=== PATIENT | female | born 1985 | race Caucasian/White ===

== ENCOUNTER 2017-03-24 22:26 | Emergency (ER) | payer MEDICAID ==
--- NOTE | ~2017-03-24 | ER ---
PATIENT'S NAME: BETHEL COWART [facility] AGE: 31 Y [address] ROOM: [place] [address] LOCATION: [facility] ADMIT DATE: 03/24/2017 ER/Outpatient Report DISCHARGE DATE: 03/24/2017 FAMILY PHYSICIAN: PHYSICIAN, NO ATTENDING PHYSICIAN: Jeanne Barbosa HISTORY OF PRESENT ILLNESS: This is a 31-year-old female, who presents today with chief complaint of 1- week of cough, congestion and runny nose. The patient says she feels short of breath. Short of breath is worse with coughing. She says she has had some productive sputum as well and also reports fever. She has not taken her temperature. She saw a doctor in [place] about a week ago for this and was given Z-Desmond, pseudoephedrine, Medrol Dosepak and inhaler. She has been using it and she says it is not helping and also with a lot of sick contacts. Her entire family has cold, congestion, cough and runny nose syndromes. No other complaints at this time. No chest pain. No nausea or vomiting. No abdominal pain. No tingling. No muscle aches. No other complaints. PAST MEDICAL HISTORY: Anxiety, PTSD. SURGICAL HISTORY: Right cystectomy, tubal ligation and appendectomy. SOCIAL HISTORY: She smokes half-a-pack to 1-pack per day and has done so for 15 years. Continues to smoke even with these cough and congestion. Denies any drugs or alcohol use. MEDICATIONS: Please see med list. ALLERGIES: LATEX. REVIEW OF SYSTEMS: Reviewed by me and negative with the exception of those discussed in the HPI. PHYSICAL EXAMINATION: VITAL SIGNS: She is 5 feet 1 inch. She weighs 72.1 kilos, blood pressure 127/74, heart rate 83, respiratory rate 16, temperature is 99.3 tympanic, and saturating 97% on room air. GENERAL: The patient smells like cigarette. She is not ill or toxic appearing. She is speaking to me in full sentences. Not actively coughing at this time. She does not appear toxic. She is alert and oriented x3. PATIENT'S NAME: BETHEL COWART [facility] AGE: 31 Y [address] ROOM: [place] [address] LOCATION: [facility] ADMIT DATE: 03/24/2017 ER/Outpatient Report DISCHARGE DATE: 03/24/2017 FAMILY PHYSICIAN: PHYSICIAN, NO ATTENDING PHYSICIAN: Jeanne Barbosa HEENT: Bilateral TMs are clear. She has no sinus tenderness. On palpation of her nose, she has no nasal drainage. Her throat is clear. She has no pharyngeal erythema or exudates. No trouble handling secretions. HEART: Rate is regular. She is not tachy. She has normal breath sounds. No wheezing, rales or rhonchi. No retractions. No accessory muscle use. ABDOMEN: Soft, nontender, nondistended. No guarding or rebound. EXTREMITIES: No pedal edema. Moves all extremities. Nontender. No rash. SKIN: Warm and dry. IMPRESSION: Upper respiratory tract infection. PLAN: The patient already has been treated with antibiotics. She is on Medrol Dosepak as well. I will give her some Tessalon Perles for her cough, but she is afebrile here and well appearing. It is likely viral. Can continue conservative treatment at home. MD RICHARD JIMENEZ/driss /[id number] d: 03/25/17 0342 t: 03/26/17 0030, OUTPATIENT REPORT
== END 2017-03-24 23:06 | disposition disaster alternative care site (69) ==
LOC: GMED 22:26
DX: J06.9 Acute upper respiratory infection, unspecified (principal); F17.210 Nicotine dependence, cigarettes, uncomplicated; F41.9 Anxiety disorder, unspecified; Z91.040 Latex allergy status; Z79.899 Other long term (current) drug therapy; Z98.51 Tubal ligation status; Z90.49 Acquired absence of other specified parts of digestive tract

== ENCOUNTER 2017-04-17 10:49 | Emergency (ER) | payer MEDICAID ==
--- NOTE | ~2017-04-17 | ER ---
PATIENT'S NAME: BETHEL COWART [facility] AGE: 31 Y [address] ROOM: [place] [address] LOCATION: [facility] ADMIT DATE: 04/17/2017 ER/Outpatient Report DISCHARGE DATE: 04/17/2017 FAMILY PHYSICIAN: PHYSICIAN, NO ATTENDING PHYSICIAN: Gustavo Al CHIEF COMPLAINT: Ring stuck on the right ring finger. HISTORY OF PRESENT ILLNESS: The patient sprained her left ring finger last night. She took her ring off and placed it on her right hand so as to not lose it; however, it began to swell on the right hand. She has tried multiple things throughout the evening and could not get it off. She came in for further evaluation today. She denies any numbness or tingling, but the finger is very painful and swollen. She is able to activate the finger without difficulty. PAST MEDICAL HISTORY: Documented on the record and reviewed by me. SOCIAL HISTORY: Documented on the record and reviewed by me. MEDICATIONS: Documented on the record and reviewed by me. ALLERGIES: DOCUMENTED ON THE RECORD AND REVIEWED BY ME. REVIEW OF SYSTEMS: All systems reviewed and negative except as noted in the HPI. PHYSICAL EXAMINATION: VITAL SIGNS: Blood pressure 117/71, pulse 71, respiratory rate 16, temperature 97.8, SpO2 is 94% on room air. Pain is 10/10. GENERAL: An age appropriate female, sitting upright on exam table in obvious discomfort. No significant display of pain. HEENT: Normocephalic, atraumatic. No obvious abnormalities. CHEST: Even and unlabored respirations. EXTREMITIES: Warm and well perfused. Right ring finger is slightly edematous, slightly erythematous, but brisk capillary refill. SKIN: Otherwise warm, dry, and intact. LABORATORY DATA AND X-RAYS: Labs and images none. PATIENT'S NAME: BETHEL COWART [facility] AGE: 31 Y [address] ROOM: [place] [address] LOCATION: [facility] ADMIT DATE: 04/17/2017 ER/Outpatient Report DISCHARGE DATE: 04/17/2017 FAMILY PHYSICIAN: PHYSICIAN, NO ATTENDING PHYSICIAN: Gustavo Al IMPRESSION: Constricting rings on the right ring finger. EMERGENCY DEPARTMENT COURSE: The patient was seen and evaluated. There was concern for significant swelling related to ring compression. The rings were tried to be removed with a gauze technique and [place] Gel; however, this was not effective. We ended up having to cut the rings in multiple locations. The patient had good neurovascular status of the finger after the procedure. Recommended no further ring application until swelling is markedly improved. She will need to get her rings repaired unfortunately. MD MASOOD HUDSON/driss /[id number] d: 04/17/171941 t: 04/18/17 1012, OUTPATIENT REPORT
== END 2017-04-17 11:35 | disposition disaster alternative care site (69) ==
LOC: GMED 10:49
DX: S63.614A Unspecified sprain of right ring finger, initial encounter (principal); F43.10 Post-traumatic stress disorder, unspecified; F17.210 Nicotine dependence, cigarettes, uncomplicated; F32.9 Major depressive disorder, single episode, unspecified; Z79.899 Other long term (current) drug therapy; Z88.8 Allergy status to other drugs, medicaments and biological substances; Z98.890 Other specified postprocedural states; W49.04XA Ring or other jewelry causing external constriction, initial encounter

== ENCOUNTER 2017-04-27 12:16 | Emergency (ER) | payer MEDICAID ==
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
[2017-04-27 14:11] LABS: BARBITURATE NEGATIVE (NEGATIVE); COCAINE NEGATIVE (NEGATIVE); OPIATES NEGATIVE (NEGATIVE)
[2017-04-27 14:16] LABS: AMPHETAMINE NEGATIVE (NEGATIVE)
== END 2017-04-27 14:30 | disposition disaster alternative care site (69) ==
LOC: GMED 12:16
PROVIDERS: Physician Assistant Medical
DX: F41.8 Other specified anxiety disorders (principal); F17.210 Nicotine dependence, cigarettes, uncomplicated; Z91.040 Latex allergy status; Z79.899 Other long term (current) drug therapy